=== PATIENT | male | born 1965 | race Caucasian/White ===

== ENCOUNTER → 2016-10-02 | Outpatient (CLI) | payer BC, OTHER ==
[2016-10-02 15:24] LABS: Blood Urea Nitrogen 16 mg/dL (9-20); Non-African American GFR(MDRD) >60 (>60 ml/min/1.73 sqM)
--- NOTE | 2016-10-02 17:11 | CT ---
EXAMINATION TYPE: CT abdomen pelvis w con DATE OF EXAM: 10/02/2016 4:47 PM COMPARISON: NONE INDICATION: Generalized pain with Abdominal distention. DLP: 2604.9 mGycm, Automated exposure control for dose reduction was used. CONTRAST: 100 mL of Omnipaque 300. Study performed with Oral Contrast TECHNIQUE: Axial images were obtained from above the diaphragm to the pubic rami in the axial plane a t 5 mm thick sections. Reconstructed images are reviewed on the computer in the coronal plane. FINDINGS: Limited CT sections are obtained the lung bases. Minimal compressive atelectasis is within the depen dent medial portions of the lung bases bilaterally.. CT ABDOMEN: Liver: Normal Spleen: Normal Pancreas: Normal Adrenal glands: The adrenal glands are normal. Gallbladder: Normal Kidneys: No masses are evident. No hydronephrosis is present. No cysts are present. Aorta: Vascular calcification is within the aorta. Inferior vena cava: Normal. CT PELVIS: Loops of bowel within the abdomen and pelvis are normal. There are loops of bowel which are incom pletely distended or lack oral contrast limiting their evaluation. Appendix: Not visualized Urinary bladder: Normal. Genitourinary structures: Prostate contains a small density within the left aspect. This is not as de nse as typically identified for calcification. Discrete mass is not otherwise identified. Enlargement is not evident. Osseous structures: No suspicious lytic or sclerotic lesions. IMPRESSIONS: 1. Minimal subsegmental atelectasis. 2. Unremarkable abdomen. 3. Tiny hyperdense lesion within the left aspect of the prostate. Calcification could be within the d ifferential.
== END | disposition home or self-care (01) ==
LOC: RADCTMAIN 14:41
DX: N42.9 Disorder of prostate, unspecified (principal)
CPT/HCPCS: 82565; 84520; 74177; 36415; Q9967

== ENCOUNTER 2017-01-10 08:41 | Day surgery (SDC) | payer BC, OTHER ==
[2017-01-10 09:22] VITALS: RESP 16; TEMP 98.1
[2017-01-10] MEDS ORDERED: LIDOCAINE 1% 20 ML VIAL (10MG/ML) FOR IV START SQ ONE (09:28)
[2017-01-10] MEDS ORDERED: LACTATED RINGERS 1,000 ML IV ONE (09:28)
[2017-01-10] MEDS ORDERED: HYDROmorphone 1 MG/ML 1 ML SYRINGE IVP PRN (09:29)
[2017-01-10] MEDS ORDERED: LACTATED RINGERS 1,000 ML IV SCH (09:29)
[2017-01-10] MEDS ORDERED: ONDANSETRON 4 MG/2 ML VIAL IVP ONE (09:29)
[2017-01-10] MEDS ORDERED: DEXAMETHASONE SOD PHOSPHATE 10 MG/ML 1 ML VIAL IV ONE (09:29)
[2017-01-10 09:31] LABS: Glucose,Whole Blood 81 mg/dL (75-99)
[2017-01-10 09:32] VITALS: BMI 36.2
[2017-01-10] MEDS ORDERED: PROPOFOL 10 MG/ML 20 ML VIAL IV ONE (09:42)
[2017-01-10] MEDS ORDERED: LIDOCAINE 1% INJ 10MG/ML (20 ML MDV) ONE (09:42)
--- NOTE | 2017-01-10 09:44 | P.GSHP ---
History of Present Illness H&P Date: 01/10/17 Chief Complaint: Colitis This a 51-year-old male who's had issues with colitis. Patient was then sedated for colonoscopy. He's had cramps and frequent bowel movements and rectal bleeding. - Constitutional Constitutional: Reports as per HPI Past Medical History Past Medical History: Atrial Fibrillation, Asthma, COPD, Diabetes Mellitus, GERD /Reflux, GI Bleed, Hypertension Additional Past Medical History / Comment(s): BLEEDING ULCER History of Any Multi-Drug Resistant Organisms: None Reported Past Surgical History: No Surgical Hx Reported Past Anesthesia/Blood Transfusion Reactions: No Reported Reaction Past Psychological History: No Psychological Hx Reported Smoking Status: Former smoker Past Alcohol Use History: None Reported Additional Past Alcohol Use History / Comment(s): QUIT SMOKING ONE YEAR AGO Past Drug Use History: None Reported - Past Family History Mother Family Medical History: Diabetes Mellitus Medications and Allergies Home Medications Medication Instructions Recorded Confirmed Type Omeprazole 20 mg PO BID 01/10/17 01/10/17 History amLODIPine [Norvasc] 10 mg PO DAILY 01/10/17 01/10/17 History Allergies Allergy/AdvReac Type Severity Reaction Status Date / Time No Known Allergies Allergy Verified 01/10/17 09:23 Surgical - Exam Vital Signs Temp Pulse Resp BP Pulse Ox 98.1 F 96 16 115/79 100 01/10/17 09:20 01/10/17 09:20 01/10/17 09:20 01/10/17 09:20 01/10/17 09:20 - General well developed, no distress - Eyes PERRL - ENT normal pinna - Neck no masses - Respiratory normal expansion - Cardiovascular Heart Sounds: normal: S1 - Abdomen Abdomen: soft, non tender Assessment and Plan Plan: History of colitis. We'll perform colonoscopy.
--- NOTE | 2017-01-10 09:55 | P.OP ---
Date of Procedure: 01/10/17 Preoperative Diagnosis: Colitis Postoperative Diagnosis: Colitis with inflammation to right colon Procedure(s) Performed: Colonoscopy Anesthesia: MAC Surgeon: Milton Garza Pathology: other (Multiple colonic biopsies) Condition: stable Disposition: PACU Description of Procedure: The patient's placed on the endoscopy table in the lateral position. He received IV sedation. Digital rectal exam was performed which revealed no abnormalities. Flexible colonoscope was then placed patient anus passed throughout the entire colon. The ileocecal valve was visually's. The cecum and right colon appeared normal. In the transverse colon there was evidence of inflammation. The transverse colon was biopsied. There appeared to be evidence of inflammation from the transverse colon descending colon and sigmoid colon and rectum. Biopsies of the descending colon and rectum were also performed. The scope was withdrawn for patient.
[2017-01-10 10:12] VITALS: PULSE 92
[2017-01-10 10:34] VITALS: BP 137/86
== END 2017-01-10 11:22 | disposition home or self-care (01) ==
LOC: ORWHC2ENDO 08:41
PROVIDERS: ATTEND Surgery
DX: K52.9 Noninfective gastroenteritis and colitis, unspecified (principal); I10 Essential (primary) hypertension; I48.91 Unspecified atrial fibrillation; J44.9 Chronic obstructive pulmonary disease, unspecified; J45.909 Unspecified asthma, uncomplicated; E11.9 Type 2 diabetes mellitus without complications; K21.9 Gastro-esophageal reflux disease without esophagitis; Z79.899 Other long term (current) drug therapy; Z87.891 Personal history of nicotine dependence; Z83.3 Family history of diabetes mellitus
CPT/HCPCS: 45380; 88305; J2001; J2704

== ENCOUNTER → 2017-02-14 | Outpatient (CLI) | payer OTHER ==
--- NOTE | 2017-02-18 14:12 | ECHOF ---
Referral Reason:I10 htn R60.0 edema MEASUREMENTS -------- HEIGHT: 182.9 cm WEIGHT: 90.7 kg BP: IVSd: 1.1 cm (0.6 - 1.1) LVIDd: 4.8 cm (3.9 - 5.3) LVPWd: 1.2 cm (0.6 - 1.1) IVSs: 1.8 cm LVIDs: 2.7 cm LVPWs: 2.0 cm Ao Diam: 3.4 cm (2.0 - 3.7) AV Cusp: 2.2 cm (1.5 - 2.6) LA Diam: 3.8 cm (2.7 - 3.8) MV EXCURSION: 15.271 mm (> 18.000) MV EF SLOPE: 117 mm/s (70 - 150) EPSS: 0.5 cm RAP: 5.00 mmHg RVSP: 29.78 mmHg FINDINGS -------- Atrial fibrillation. This was a technically adequate study. There is mild concentric left ventricular hypertrophy. Overall left ventricular systolic function is normal with, an EF between 55 - 60 %. The right ventricle is normal in size and function. The left atrium is normal in size. The right atrium is normal in size. The aortic valve is trileaflet, and appears structurally normal. No aortic stenosis or regurgitation. There is trace mitral regurgitation. Trace tricuspid regurgitation present. The right ventricular systolic pressure, as measured by Doppler, is 29.78mmHg. Pulmonic valve appears structurally normal. The aortic root size is normal. The pericardium is normal. CONCLUSIONS -------- 1. Atrial fibrillation. 2. Trace tricuspid regurgitation present. 3. The right ventricular systolic pressure, as measured by Doppler, is 29.78mmHg. 4. Pulmonic valve appears structurally normal. 5. The aortic root size is normal. 6. The pericardium is normal. 7. This was a technically adequate study. 8. There is mild concentric left ventricular hypertrophy. 9. Overall left ventricular systolic function is normal with, an EF between 55 - 60 %. 10. The right ventricle is normal in size and function. 11. The left atrium is normal in size. 12. The right atrium is normal in size. 13. The aortic valve is trileaflet, and appears structurally normal. No aortic stenosis or regurgitation. 14. There is trace mitral regurgitation. MICROBIOLOGY TEACHER: Beulah Cardenas RDCS
== END | disposition home or self-care (01) ==
LOC: RADECHMAIN 11:00
PROVIDERS: ATTEND Internal Medicine
DX: I48.91 Unspecified atrial fibrillation (principal); I08.1 Rheumatic disorders of both mitral and tricuspid valves
CPT/HCPCS: 93306